=== PATIENT | male | born 1975 | race Caucasian/White ===

== ENCOUNTER 2022-03-31 07:18 | Day surgery (SDC) | payer OTHER ==
[2022-03-30 14:33] LABS: Potassium 3.8 mmol/L (3.5-5.1)
[2022-03-31] MEDS ORDERED: Ringers Lactate 1,000 ML IV ONE (07:37)
[2022-03-31] MEDS ORDERED: CEFAZOLIN SODIUM 2 GM/VIAL ONE (07:37)
[2022-03-31] MEDS ORDERED: BUPIVACAINE 0.25% PF 30 ML VIAL ONE (08:09)
[2022-03-31] MEDS ORDERED: LIDOCAINE 2% MPF 5 ML VIAL ONE (08:38)
[2022-03-31] MEDS ORDERED: propofoL 200 MG/20 ML VIAL IV ONE (08:38)
[2022-03-31] MEDS ORDERED: FENTANYL CITR 100 MCG/2 ML ONE ×2 (08:38→09:05)
[2022-03-31] MEDS ORDERED: MIDAZOLAM HCL 2 MG/2 ML INJ ONE (08:38)
[2022-03-31] MEDS ORDERED: ROCURONIUM 50 MG/5 ML VIAL IV ONE (08:39)
[2022-03-31] MEDS ORDERED: NS 0.9% VIAL 10 ML ONE (08:48)
[2022-03-31] MEDS ORDERED: KETOROLAC 30 MG/ML INJ ONE (09:04)
[2022-03-31] MEDS ORDERED: dexAMETHasone 10 MG/ML VIAL ONE (09:04)
[2022-03-31] MEDS ORDERED: ONDANSETRON 4 MG/2 ML VIAL ONE (09:05)
[2022-03-31] MEDS ORDERED: GLYCOPYRROLATE 0.2 MG/ML SYR ONE (09:51)
--- NOTE | 2022-03-31 09:56 | P.OP ---
Preoperative diagnosis: Umbilical Hernia Postoperative diagnosis: Umbilical Hernia Primary procedure: Laparoscopic Umbilical Hernia Repair with mesh Anesthesia: GETA + Local Estimated blood loss: <2cc Specimen: hernia contents Findings: adipose contained in umbilical hernia, diastasis recti superior to umbilicu Complications: None Implants: Bard Ventralite ST with echo, 11.4cm round, sorbafix Transferred to: Recovery Room Condition: Good
[2022-03-31] MEDS: HYDRALAZINE HCL 20 MG/ML VIAL ONE ×2 (10:00→10:20)
[2022-03-31] MEDS: HYDROMORPHONE HCL 1 MG/ML INJ ONE ×2 (10:15→10:25)
[2022-03-31 10:35] VITALS: O2SAT 95
[2022-03-31] MEDS ORDERED: PROMETHAZINE INJ 25 MG/ML AMP ONE (10:50)
[2022-03-31] MEDS ORDERED: HYDROCODONE/APAP 10/325 TAB ONE (11:34)
[2022-03-31 12:30] VITALS: TEMP 96.8
[2022-03-31 12:33] VITALS: BP 119/87
--- NOTE | 2022-03-31 16:03 | EKG ---
Test Date: 2022-03-30 Test Time: 13:50:11 Calendar Control Clerk Blood Bank: [facility] MEASUREMENT RESULTS: Intervals: Rate: 78 MN: 148 QRSD: 98 QT: 380 QTc: 433 [place]: P: 67 MN: 148 QRS: 71 T: 70 INTERPRETIVE STATEMENTS: Normal sinus rhythm Normal ECG Compared to ECG 12/15/2014 01:51:53 No significant changes Electronically Signed On 03-31-22 16:00:26 PROJECT CONSTRUCTION MANAGER by Eloy Albert
--- NOTE | 2022-03-31 20:28 | OP ---
Date of Procedure: 03/31/2022 Surgeon: Erasmo Laughlin MD, Preoperative Diagnosis: Umbilical hernia. Postoperative Diagnosis: Umbilical hernia. Procedure Performed: Laparoscopic umbilical hernia repair with mesh. Anesthesia: General endotracheal plus local with 0.25% Marcaine. Estimated Blood Loss: Less than 2 cc. Specimen: Hernia contents, which is adipose tissue. Findings: 1.Adipose tissue contained an umbilical hernia. 2.Diastasis recti superior to the umbilicus. No epigastric hernia appreciated at this time. Implants: Bard Ventralight ST mesh with Echo Positioning System, 11.4 cm round mesh utilized and the SorbaFix absorbable fixation tacker was utilized for apposition, 45 tacks used. Disposition: The patient was transferred to recovery room in good condition. Procedure In Detail: After informed consent was obtained, the patient was brought to the operating r oom, and prepped and draped in the usual sterile fashion. After adequate anesthesia was achieved, an area of the left lower quadrant was anesthetized with 0.25% Marcaine and sharply incised. A 5 mm tr ocar was placed under direct visualization without evidence of any complication. Insufflation was ob tained to 15 mmHg at this time. There was no injury to vital structures upon entry into the abdomen. Additional trocar was placed in the left lower quadrant. This was similarly anesthetized and sharp ly incised. A 12 mm trocar was placed under direct visualization without evidence of any complicatio n. I appreciated that the patient had umbilical hernia at this point. I used the LigaSure device to take down the adipose tissue contained within the hernia sac. There was omental contents as well as preperitoneal fat, which I dissected clean and removed from the hernia defect, which was found to be small approximately a cm in size. I swept the tissues back and ligated them, placed them in an Endo Catch bag, removed through the umbilical trocar, and sent off for pathologic examination as hernia c ontents. At this point, there was good landing zone appropriate for the hernia mesh. At this point, I considered closing the defect with an Endo Stitch; however, there was a wide mouth and smooth curv ature to the umbilicus and the hernia sac was quite flat at this point, therefore I felt that closing with an Endo Stitch would not assist with any reinforcement of the hernia defect as the lateral aspe cts were somewhat weak. As such I placed the 11.4 cm Bard Ventralight mesh into the abdomen, deploye d the balloon deployment system after making a small stab incision in the supraumbilical position. T he mesh was positioned appropriately and secured to the anterior abdominal wall with a single crown o f SorbaFix tacks. At this point, I removed the balloon deployment system and found it to be intact o n the back table. I then secured a second crown to the anterior abdominal wall with SorbaFix absorba ble fixation tacks, 45 tacks utilized. At this point, there was good apposition of the mesh to the a nterior abdominal wall and the hernia was obliterated at this point. The diastasis recti was appreci ated at the superior aspect and was partially covered by the mesh. At this point, I removed the 12 m m trocar and closed the 12 mm trocar site using a Alejo-Wilmer suture passer with 0 Vicryl in inte rrupted fashion with good approximation of tissues. The abdomen was completely desufflated under dir ect visualization without evidence of any complication. Remaining trocars were removed. All skin in cisions were copiously irrigated and closed with a 4-0 Monocryl in a running fashion. Dermabond plac ed over top. The patient tolerated the procedure without evidence of any complication and transferre d to PACU in good condition. All counts were correct at the end of the case. DANIELLE/EVELYN Voice ID: [id number] Report ID: [id number]
== END 2022-03-31 11:40 | disposition home or self-care (01) ==
LOC: OR 07:18
PROVIDERS: ATTEND Surgery
PROC: 0WUF4JZ Supplement Abdominal Wall with Synthetic Substitute, Percutaneous Endoscopic Approach (ICD-10-PCS; principal; 2022-03-31 08:30)
DX: K42.9 Umbilical hernia without obstruction or gangrene (principal)
CPT/HCPCS: 93005; 80048; 36415; 82947; 88302; 49593; J0360; J2704; J2550; J2001; J3010 ×2; J1100; A4216; J1170; J7120; J2405; C1781; J2250